=== PATIENT | female | born 1965 | race Caucasian/White ===

== ENCOUNTER 2021-05-05 12:14 | Outpatient (CLI) | payer BC, SELFPAY ==
--- NOTE | ~2021-05-05 | MM_ITS ---
EXAMINATION: MM diagnostic yesi RT w blair HISTORY: Follow-up right breast asymmetry TECHNIQUE: Additional 3-D tomosynthesis images of the right breast were performed and synthetic 2-D i mages were generated. CAD analysis was submitted and interpreted. COMPARISON: 04/16/2021 BREAST PARENCHYMAL COMPOSITION: Breast composed of scattered areas of fibroglandular density FINDINGS: . There are no suspicious masses, calcifications or architectural distortion in the right b reast to suggest malignancy. The focal asymmetry posteriorly and laterally near the chest wall corres ponds to pectoralis muscle. IMPRESSION: 1. No mammographic evidence for malignancy in the right breast. 2. Routine yearly screening mammogram and regular clinical breast examination are recommended. BI-RADS Category 1: Negative Reviewed, dictated and finalized at location A. SERVICES COORDINATOR IMPRESSION: 1. No mammographic evidence for malignancy in the right breast. 2. Routine yearly screening mammogram and regular clinical breast examination a re recommended. BI-RADS Category 1: Negative
== END 2021-05-05 12:15 | disposition home or self-care (01) ==
LOC: ANHIMG 12:18
PROVIDERS: Visit Provider Nurse Practitioner Women's Health
DX: R92.8 Other abnormal and inconclusive findings on diagnostic imaging of breast (principal)
CPT/HCPCS: 77061; 77065; G0279

== ENCOUNTER 2022-05-25 10:40 | Outpatient (CLI) | payer BC, SELFPAY ==
--- NOTE | 2022-05-28 15:34 | WPDHOLTEREM ---
Holter/Event Monitor Holter/Event Monitor Date of procedure: 05/25/22 Holter/Event Procedure: 48 Hr Holter Monitor Indications: Palpitations Conclusion: 1. 48 hour holter monitor on 05/25/22. 2. Underlying rhythm is sinus rhythm. HR range 46-136 bpm; average HR 76 bpm. 3. There are 7,017 premature supraventricular complexes and 8 supraventricular couplets, 237 supraventricular trigeminy. No supraventricular tachycardia. 4. There are 10,275 premature ventricular complexes, 715 premature ventricular couplets, 291 ventricular bigeminy and 810 ventricular trigeminy. No ventricular tachycardia. 5. No sinoatrial or atrioventricular blocks. No significant pauses greater than 2 seconds. 6. No symptoms available for correlation.
== END 2022-05-25 10:41 | disposition home or self-care (01) ==
PROVIDERS: PCP Physician Assistant Medical; Visit Provider Physician Assistant Medical
DX: R00.2 Palpitations (principal)
CPT/HCPCS: 93225; 93226

== ENCOUNTER 2022-06-17 08:47 | Outpatient (CLI) | payer BC, SELFPAY ==
--- NOTE | ~2022-06-17 | MM_ITS ---
EXAMINATION: MM screening yesi BI w blair HISTORY: Screening mammogram TECHNIQUE: Craniocaudal and mediolateral oblique 3-D tomosynthesis images were obtained and synthetic 2-D images were generated. CAD analysis was submitted and interpreted. COMPARISON: 05/05/2021 right diagnostic mammogram 04/24/2021 Limited right breast ultrasound 04/16/2021 bilateral screening mammogram BREAST PARENCHYMAL COMPOSITION: The breasts are almost entirely fatty. FINDINGS: There is no evidence of suspicious mass, calcification, or architectural distortion to sugg est malignancy in either breast. There has been no suspicious interval change. IMPRESSION: 1. No mammographic evidence of malignancy. 2. Recommend routine screening mammography in one year. BI-RADS Category 1: Negative Reviewed, dictated and finalized at location A. ABLE SAWYER
== END 2022-06-17 08:48 | disposition home or self-care (01) ==
LOC: ANHIMG 08:50
PROVIDERS: PCP Physician Assistant Medical; Visit Provider Obstetrics & Gynecology
DX: Z12.31 Encounter for screening mammogram for malignant neoplasm of breast (principal)
CPT/HCPCS: 77063; 77067

== ENCOUNTER 2023-09-07 08:51 | Outpatient (CLI) | payer BC, SELFPAY ==
--- NOTE | ~2023-09-07 | MM_ITS ---
EXAMINATION: MM screening yesi BI w blair HISTORY: Screening TECHNIQUE: Craniocaudal and mediolateral oblique 3-D tomosynthesis images were obtained and synthetic 2-D images were generated. CAD analysis was submitted and interpreted. COMPARISON: Comparison to multiple prior studies sequentially, with oldest reviewed study dated 01/2021. BREAST PARENCHYMAL COMPOSITION: Not dense: There are scattered areas of fibroglandular density. FINDINGS: There is no evidence of suspicious mass, calcification, or architectural distortion to sugg est malignancy in either breast. There has been no suspicious interval change. IMPRESSION: 1. No mammographic evidence of malignancy. 2. Recommend routine screening mammography in one year. BI-RADS Category 1: Negative Reviewed, dictated and finalized at location B.
== END 2023-09-07 08:52 | disposition home or self-care (01) ==
LOC: ANHIMG 08:54
PROVIDERS: PCP Physician Assistant Medical; Visit Provider Physician Assistant Medical
DX: Z12.31 Encounter for screening mammogram for malignant neoplasm of breast (principal)
CPT/HCPCS: 77063; 77067

== ENCOUNTER 2024-09-07 07:22 | Outpatient (CLI) | payer BC, SELFPAY ==
--- NOTE | ~2024-09-07 | MM_ITS ---
EXAMINATION: MM screening [facility] BI w [facility] HISTORY: Screening TECHNIQUE: Craniocaudal and mediolateral oblique 3-D tomosynthesis images were obtained and synthetic 2-D images were generated. CAD analysis was submitted and interpreted. COMPARISON: Comparison to multiple prior studies sequentially, with oldest reviewed study dated 01/2021. BREAST PARENCHYMAL COMPOSITION: Not Dense: The breasts are almost entirely fatty. FINDINGS: There is no evidence of suspicious mass, calcification, or architectural distortion to sugg est malignancy in either breast. There has been no suspicious interval change. IMPRESSION: 1. No mammographic evidence of malignancy. 2. Recommend routine screening mammography in one year. BI-RADS Category 1: Negative Reviewed, dictated and finalized at location A.
--- OUTSIDE RECORDS SUMMARY | 2024-09-07 07:26 | XMS_ITS | Clinical Summary ---
Author Organization [facility] Address [address] [place] [address] Care Team Providers Care Door Assembler Name Role Phone Chucho Jhoana GALVIN Primary Care Provider [phone] Allergies Active Allergy Reactions Criticality Noted Date Comments Shena Haywood 12/15/2018 Medications pantoprazole EC 40 MG tabletIndicati ons:Gastroesop hageal Reflux Disease Take 1 tablet (40 mg total) by mouth daily. Indications: Gastroesophageal Reflux Disease 0 10/06/19 19 Active pregabalin (LYRICA) 50 MG capsuleIndicat ions:Numbness and tingling of left leg Take 1 capsule (50 mg total) by mouth 3 (three) times daily. 90 capsule 10/10/19 24 Active BONE STIMULATOR, DME,Indication s:Spondylolist hesis at L4-L5 level Apply 1 Device topically daily. Wear four (4) hours daily. Can break up into multiple sessions totaling four (4) hours. 1 Device 01/26/20 24 025 Active Misc. Devices MiscIndication s:Spondylolist hesis of lumbar region 1 Units by Does not apply route daily. LSO for continuous wear while ambulating or up in chair 1 each 01/26/20 24 Active multi vitamin/minera ls (THERA-M ENHANCED) tablet Take 1 tablet by mouth daily. Active Flaxseed, Linseed, (FLAX SEED OIL OR) Active calcium carbonate 1250 (500 Ca) MG chewable tablet Chew 1 tablet (1,250 mg total) by mouth daily. Active B complex-C Cap capsule Take 1 capsule by mouth daily. Active HYDROcodone-ac etaminophen (NORCO) 5-325 MG tabletIndicati ons:Chronic Pain Take 1-2 tablets by mouth every 4 (four) hours as needed. Indications: Chronic Pain 50 tablet 02/17/20 24 Active diazePAM (VALIUM) 5 MG tabletIndicati ons:S/P lumbar fusion Take 1 tablet (5 mg total) by mouth every 6 (six) hours as needed for Muscle Spasms. 60 tablet 02/17/20 24 Active naloxone (NARCAN) 4 MG/0.1ML nasal sprayIndicatio ns:S/P lumbar fusion 1 spray by Nasal route as needed for Opioid reversal. may repeat every 2 to 3 minutes in alternating nostrils until medical assistance becomes available 1 each 02/17/20 24 025 Active Active Problems Problem Noted Date Diagnosed Date Acute pain of right knee 07/12/2024 Rheumatoid arthritis ([facility]) S/P lumbar fusion 02/15/2024 Numbness and tingling of left leg 10/11/2023 Assessment & Plan (10/11/2023 7:23 PM CDT): Recommendation at this time, we'll get her set up for an EMG-NCV as well as an MRI of the lumbar spine. We'll see her back after that. Spondylolisthesis at L4-L5 level 10/11/2023 BMI 36.0-36.9,adult 10/11/2023 Assessment & Plan (10/11/2023 7:23 PM CDT): We discussed the adverse effects of weight on osteoarthritis. For every 1 pound loss, 4 to 6 pounds of stress is relieved from the knee, slightly more at the ankle and slightly less at the hip. We discussed low carbohydrate diet to help with weight loss. 80% of weight loss is through diet. Diverticulitis of large intestine 02/24/2021 Diverticulitis 01/07/2021 Diverticulitis of colon with perforation 021 Encounters Date Type Department Care Team Description 07/19/2024 7:29 AM CDT - 07/19/2024 11:59 PM CDT Hospital Encounter [facility] [address] [place] [id number] Olga Harris, PT Chayito Pinzon PTA Knee Pain Discharge Disposition: Home or Self Care (Routine Discharge) 07/19/2024 Travel 07/16/2024 7:27 AM CDT - 07/16/2024 11:59 PM CDT Hospital Encounter [facility] [address] [place] [id number] Olga Harris, PT Alexia Atkinson, PA Knee Pain Discharge Disposition: Home or Self Care (Routine Discharge) 07/16/2024 Travel 07/12/2024 7:25 AM VETERINARY PHARMACOLOGIST - 07/12/2024 11:59 PM VETERINARY PHARMACOLOGIST Hospital Encounter [facility] [address] [place] [id number] Olga Harris, PT Alexia Atkinson, PA Knee Pain Discharge Disposition: Home or Self Care (Routine Discharge) 07/12/2024 Travel 07/03/2024 11:45 AM VETERINARY PHARMACOLOGIST - 07/03/2024 11:59 PM VETERINARY PHARMACOLOGIST Hospital Encounter [facility] [address] [place] [address] Alexia Atkinson, PA Discharge Disposition: Home or Self Care (Routine Discharge) 07/03/2024 11:20 AM VETERINARY PHARMACOLOGIST Office Visit [facility] [address] [phone] Alexia Atkinson, PA Knee Injury (Was walking last week and knee gave out-been having a lot of pain since than) 07/03/2024 Orders Only [facility] [address] [phone] Alexia Atkinson, PA 07/03/2024 Travel from Last 3 Months Immunizations Immunization Administration Dates Next Due Fluzone 6 Months+ Quad (0.5 mL Prefilled Syringe ) 02/25/2021 adjust (Phagenesis) COVID-19 AD26 VACCINE 0.5 ML IM SUSP 07/11/2020 Family History Medical History Relation Comments Congenital heart defect Father Breast Cancer Maternal Aunt Pancreatic cancer Maternal Uncle Arthritis Mother Diabetes Mother Relation Status Comments Father Maternal Aunt Maternal Uncle Mother Alive Social History Tobacco Use Types Packs/Day Years Used Date Smoking Tobacco: Former Cigarettes Smokeless Tobacco: Never Tobacco Cessation:Counseling Given: No Comments:While drinking during college, never more than a few cigarettes at a time. Alcohol Use Standard Drinks/Week Comments Yes 0 (1 standard drink = 0.6 oz pur e alcohol) Varies on weekends B1300 Health Literacy Answer Date Recor ded How often do you need to hav e someone help you when you read instructions, pamphlets, or other written material from your doctor or pharmacy? Never 02/15/2024 [facility] Utilities Answer Date Recorded In the past 12 months has e [employer], gas, oil, or water [employer] threatened to shut off services in your home? No 02/15/2024 Humiliation, Afraid, Rape, and Kick questionnair e Answer Date Recorded Within the last year, have y ou been afraid of your partner or ex-partner? No 02/15/2024 Within the last year, have y ou been humiliated or emotionally abused in other ways by your partner or ex-partner? No Within the last year, have y ou been kicked, hit, slapped, or otherwise physically hurt by your partner or ex-partner? No 02/15/2024 Within the last year, have y ou been raped or forced to have any kind of sexual activity by your partner or ex-partner? No 02/15/2024 Overall Financial Resource Strain (CARDIA) Answe r Date Recorded How hard is it for you to pa y for the very basics like food, housing, medical care, and heating? Not hard at all 02/15/2024 PHQ-2 Answer Date Recorded Patient Health Questionnaire-2 Score 0 07/03/2024 [facility] Occup[facility] - Occupational Stress Questionnaire Answer Date Recorded Do you feel stress - tense, restless, nervous, or anxious, or unable to sleep at night because your mind is troubled all the time - these days? Not at all 02/15/2024 Exercise Vital Sign Answer Date Recorde d On average, how many days pe r week do you engage in moderate to strenuous exercise (like a brisk walk)? 0 days 02/15/2024 On average, how many minutes do you engage in exercise at this level? 0 min 02/15/2024 Hunger Vital Sign Answer Date Recorded Within the past 12 months, y ou worried that your food would run out before you got the money to buy more. Never true 02/15/20 24 Within the past 12 months, t he food you bought just didn't last and you didn't have money to get more. Never true 02/15/2024 PRAPARE - Transportation Answer Date Re corded In the past 12 months, has l ack of transportation kept you from medical appointments or from getting medications? No 01/2024 In the past 12 months, has l ack of transportation kept you from meetings, work, or from getting things needed for daily living? No 02/15/2024 Housing Stability Vital Sign Answer Mike e Recorded In the last 12 months, was t here a time when you were not able to pay the mortgage or rent on time? No 02/15/2024 In the past 12 months, how m any times have you moved where you were living? 0 02/15/2024 At any time in the past 12 m [facility], were you homeless or living in a snf (including now)? No 02/15/2024 Education Answer Date Recorded What is the highest level of school you have completed or the highest degree you have received? Some college, no degree 12/15/2018 Comments No Sex and Gender Information Value Date Recorded Sex Assigned at Female 12/15/2018 1:52 PM CDT Legal Sex Female 4:52 PM CDT Gender Identity Female 12/15/2018 1:52 PM CDT Sexual Orientation Not on file Last Filed Vital Signs Vital Sign Reading Time Taken Comments Blood Pressure 138/88 07/03/2024 11:23 AM VETERINARY PHARMACOLOGIST Pulse 80 07/03/2024 11:23 AM VETERINARY PHARMACOLOGIST Temperature 36.6 C (97.9 F) 07/03/2024 11:23 AM VETERINARY PHARMACOLOGIST Respiratory Rate 20 07/03/2024 11:23 AM VETERINARY PHARMACOLOGIST Oxygen Saturation 99% 07/03/2024 11:23 AM VETERINARY PHARMACOLOGIST Inhaled Oxygen Concentration - - Weight 91.2 kg (201 lb) 07/03/2024 11:23 AM VETERINARY PHARMACOLOGIST Height 160 cm (5' 3 ) 07/03/2024 11:23 AM VETERINARY PHARMACOLOGIST Body Mass Index 35.61 07/03/2024 11:23 AM VETERINARY PHARMACOLOGIST Plan of Treatment Upcoming Encounters Date Type Department Care Team (Late st Contact Info) Description 10/11/2024 11:20 AM CDT Office Visit [facility] Multispecialty Care - [facility] [address], [address] [place] [address] López Boateng MD [address] [place] [address] Health Maintenance Due Date Last Done Comments Cervical Cancer Screening Pa p Smear (Age 30 to 64) Every 3 Years 1967 Annual Physical 1970 Hepatitis C 1985 DTaP, Tdap and Td Vaccines ( 1 - Tdap) 1986 Hepatitis B Vaccines (1 of 3 - 19+ 3-dose series) 1986 Pneumococcal Vaccine: 50+ Years (1 of 2 - PCV) 1986 Cervical Cancer Screening Pa p with HPV Testing (Age 30 to 64) Every 5 Years 1997 Cervical Cancer Screening wi th HPV 1997 Mammogram Screening 2007 Zoster Vaccines (1 of 2) 2017 COVID-19 Vaccine (2 - 2023-2 5 season) 2024 07/11/2020 Colorectal Cancer Screening Colonoscopy (10 Years) 02/24/2031 02/24/2021, 02/23/2019 PHQ-2 (Physician [place]) Completed 07/03/2024 Meningococcal B Vaccine Aged Out No l onger eligible based on patient's age to complete this topic Meningococcal Vaccine Aged Out No lissett earnestine eligible based on patient's age to complete this topic RSV Immunizations Under 20 Months Aged Out No longer eligible b ased on patient's age to complete this topic Goals Goal Patient Goal Type Associated Problems Recent Progress Patient-Stated? Author Family - family caregiver with be involved in care transitions and discharge planning Lifestyle No Koerkenmeie r, Jordan L, RN Medical Devices Implanted Type Area [place] Planning Manager Device Identifier Shelf Expiration Date Model / Serial / Lot Putty Giselle Matrix Dbm/Dbf Bone 6c - [id number] Implanted:Qty : 1 on 02/15/2024 by López Boateng MD at [facility] Bone N/A: Spine Lumbar [employer] [id number] 10/25/2025 [id number] / [id number] / Graft Infuse Bone Medium - [id number] Implanted:Qty : 1 on 02/15/2024 by López Boateng MD at [facility] Graft N/A: Spine Lumbar [employer] [id number] 07/07/2025 [id number] / / [id number] 37mm Pyramid Plate Implanted:Qty : 1 on 02/15/2024 by López Boateng MD at [facility] Plate N/A: Spine Lumbar [employer] [id number] / / 4.75*50 Mm Brayan Implanted:Qty : 1 on 02/15/2024 by López Boateng MD at [facility] Brayan N/A: Spine Lumbar [employer] [id number] / / 6.5*25mm Screw Implanted:Qty : 4 on 02/15/2024 by López Boateng MD at [facility] Screw N/A: Spine Lumbar [employer] [id number] / / 7.5*35 Mm Screw Implanted:Qty : 2 on 02/15/2024 by López Boateng MD at [facility] Screw N/A: Spine Lumbar [employer] [id number] / / Anteralign Screw Implanted:Qty : 1 on 02/15/2024 by López Boateng MD at [facility] Screw N/A: Spine Lumbar [employer] [id number] 03/18/2031 [id number] / / [id number] Anteralign Screw Implanted:Qty : 1 on 02/15/2024 by López Boateng MD at [facility] Screw N/A: Spine Lumbar [employer] [id number] 05/25/2031 [id number] / / [id number] Graft Soft Tissue 4x4cm N[place]ield Allograft - [id number] Implanted:Qty : 1 on 02/15/2024 by López Boateng MD at [facility] Tissue N/A: Spine Lumbar [employer] 07/16/2028 [id number] / / [id number] Medtronic Anteralign Spinal System With Titan Nanolock Ls Spacer Implanted:Qty : 1 on 02/15/2024 by López Boateng MD at [facility] N/A: Spine Lumbar 11/02/2029 [id number] / / [id number] Anteralign Ls Spacer Implanted:Qty : 1 on 02/15/2024 by López Boateng MD at [facility] N/A: Spine Lumbar [id number] 03/04/2030 [id number] / / [id number] 5.5*40 Mm Screw Implanted:Qty : 1 on 02/15/2024 by López Boateng MD at [facility] N/A: Spine Lumbar [employer] [id number] / / Voyager Set Screw Implanted:Qty : 4 on 02/15/2024 by López Boateng MD at [facility] N/A: Spine Lumbar [employer] [id number] / / Procedures Procedure Name Priority Date/Time Associated Diagnosis Comments XR KNEE RT 3V STAT 07/03/2024 12:02 PM VETERINARY PHARMACOLOGIST Acute pain of right knee from Last 3 Months Results * XR KNEE RT 3V (07/03/2024 12:02 PM VETERINARY PHARMACOLOGIST) Anatomical Region Laterality Modality Knee Radiographic Maki ging 07/03/2024 12:0 4 PM VETERINARY PHARMACOLOGIST Impressions 07/03/2024 12:04 PM VETERINARY PHARMACOLOGIST IMPRESSION: 1. Moderate medial predominant tricompartmental osteoarthritis. 2. Joint effusion without evidence of fracture. Ordered By: ALEXIA ATKINSON Interpreted By: Callum Galarza, 07/03/2024 12:04 PM Narrative 07/03/2024 12:04 PM VETERINARY PHARMACOLOGIST [facility] [address] [place] [address] EXAMINATION: Right knee EXAM DATE: 07/03/2024 11:49 AM REASON FOR EXAM: right knee pain COMPARISON: None TECHNIQUE: 3 views FINDINGS: Mild soft tissue swelling. Small joint effusion. Moderate medial predominant tricompartmental osteoarthritis. No evidence of fracture. Procedure Note Callum Galarza MD - 07/03/2024 [facility] [address] [place] [address] EXAMINATION: Right knee EXAM DATE: 07/03/2024 11:49 AM REASON FOR EXAM: right knee pain COMPARISON: None TECHNIQUE: 3 views FINDINGS: Mild soft tissue swelling. Small joint effusion. Moderate medial predominant tricompartmental osteoarthritis. No evidenceof fracture. IMPRESSION: 1. Moderate medial predominant tricompartmental osteoarthritis. 2. Joint effusion without evidence of fracture. Ordered By: ALEXIA ATKINSON Interpreted By: Callum Galarza, 07/03/2024 12:04 PM [facility] Final Result from Last 3 Months Insurance Advance Directives Documents on File Type Date Recorded Patient Satellite Communications Engineer Expl anation Power of Blacksmith Helper 02/24/2021 5:30 AM POA 02-24-21 * Full Code (Latest Code Status on File) Date Activated Date Inactivated Comments 02/15/2024 1:52 PM 02/17/2024 4:52 PM * Full Code Date Activated Date Inactivated Comments 02/24/2021 12:22 PM 02/28/2021 4:14 PM * Full Code Date Activated Date Inactivated Comments 01/07/2021 10:30 PM 01/09/2021 4:25 PM Care Teams Door Assembler Relationship Specialty Start Date End Date Jhoana Rankin PA [address] [place] [id number] PCP - General PHYSICIAN NIGHT WAREHOUSE SELECTOR 01/27/24
--- OUTSIDE RECORDS SUMMARY | 2024-09-07 07:26 | XMS_ITS | Clinical Summary ---
Author Organization [facility] Address [address] [place] [address] Care Team Providers Care Office Mail Clerk Name Role Phone Unavailable Primary Care Provider Unavailabl e Source Comments [facility],non-owned Affiliates and Associated Physician Practices is amultiple site organization consisting of ambulatory clinics and hospital sitesin [place], [place], [place] and [place]. This disclosure is being madepursuant to the Care Everywhere program and may not contain all information available regarding this patient. Last updated 18.[facility] Social History Tobacco Use Types Packs/Day Years Used Date Smoking Tobacco: Never Assessed Comments Unknown Sex and Gender Information Value Date Recorded Sex Assigned at Not on file Legal Sex Female 6:29 PM BUS GIRL Gender Identity Not on file Sexual Orientation Not on file Plan of Treatment Health Maintenance Due Date Last Done Comments COLOGUARD (AGES 45-75) - COL ON CA SCREENING 1967 COLON MONITORING 1967 COLONOSCOPY - COLON CA SCREENING 1967 CT COLONOGRAPHY - COLON CA SCREENING 1967 Colorectal Cancer Screening 1967 FIT - COLON CA SCREENING 1967 FLEX SIG - COLON CA SCREENING 1967 LIPID TESTING 1967 MAMMOGRAM 1967 PAP SMEAR 1967 HIV SCREENING 1982 HEPATITIS C SCREENING 04/30/1985 DTAP/TDAP/TD VACCINES (1 - Tdap) 1986 HEPATITIS B VACCINE (1 of 3 - 19+ 3-dose series) 1986 PNEUMOCOCCAL VACCINE 50+ (1 of 1 - PCV) 2017 ZOSTER VACCINE (1 of 2) 2017 COVID-19 VACCINE (1 - 2023-2 5 season) 2024 DEPRESSION SCREENING 05/09/2024 INFLUENZA VACCINE (Season Ended) 2025 02/26/20 21 HIB VACCINE Aged Out No longer eligi ble based on patient's age to complete this topic HPV VACCINE Aged Out No longer eligi ble based on patient's age to complete this topic MENINGOCOCCAL (Group B) VACC INE SHARED DECISION-MAKING Aged Out No longer eligibl e based on patient's age to complete this topic MENINGOCOCCAL GROUPS A/C/Y/W VACCINE Aged Out No longer eligible b ased on patient's age to complete this topic Insurance [facility]
--- OUTSIDE RECORDS SUMMARY | 2024-09-07 07:26 | XMS_ITS | Encounter Summary ---
Author Organization [facility] Address [address] [place] [address] Care Team Providers Care Center Sales And Service Associate Name Role Phone Mihir Huston MD Primary Care Provider [phone] Jasmin Velásquez PA-C Primary Care Provider [phone] Jhoana Rankin Primary Care Provider [phone] Encounter Details Date Type Department Care Team (Late st Contact Info) Description 03/02/2021 Hospital Follow-up Call [facility] [address] [place] [address] Maegan Mai, RN Social History Tobacco Use Types Packs/Day Years Used Date Smoking Tobacco: Former Cigarettes Smokeless Tobacco: Never Comments:quit smoking 24 yea rs ago Alcohol Use Standard Drinks/Week Comments Yes 0 (1 standard drink = 0.6 oz pur e alcohol) Socially Education Answer Date Recorded What is the highest level of school you have completed or the highest degree you have received? Some college, no degree 12/15/2018 Comments No Sex and Gender Information Value Date Recorded Sex Assigned at Female 12/15/2018 1:52 PM CDT Legal Sex Female 4:52 PM CDT Gender Identity Female 12/15/2018 1:52 PM CDT Sexual Orientation Not on file COVID-19 Exposure Response Date Recorded In the last month, have you been in contact with someone who was confirmed or suspected to have Coronavirus / COVID-19? No / Unsure 02/24/2021 5:28 AM CDT documented as of this encounter Functional Status * RETIRED Are you deaf or do you have serious difficulty hearing Answer Date of Assessment Author Status No 02/24/2021 6:30 AM CDT Activ e * RETIRED Are you blind or do you have serious difficulty seeing, even when wearing glasses? Answer Date of Assessment Author Status No 02/24/2021 6:30 AM CDT Activ e * Do you have serious difficulty walking or climbing stairs? Answer Date of Assessment Author Status No 02/24/2021 6:30 AM CDT Alek Flynn RN Active * Do you have difficulty dressing or bathing? Answer Date of Assessment Author Status No 02/24/2021 6:30 AM CDT Alek Flynn RN Active * Because of a physical, mental, or emotional condition, do you have difficulty doing errands alone such as visiting a doctor's office or shopping? Answer Date of Assessment Author Status No 02/24/2021 6:30 AM CDT Alek Flynn RN Active documented as of this encounter Mental Status * Because of a physical, mental, or emotional condition, do you have serious difficulty concentrating, remembering, or making decisions? Answer Entry Date Author Status No 02/24/2021 6:30 AM CDT Alek Flynn RN Active documented in this encounter Plan of Treatment Upcoming Encounters Date Type Department Care Team (Late st Contact Info) Description 10/11/2024 11:20 AM CDT Office Visit [facility] - [address], [address] [place] [address] López Boateng MD [address] [place] [address] documented as of this encounter Visit Diagnoses Not on filedocumented in this encounter Care Teams Center Sales And Service Associate Relationship Specialty Start Date End Date Mihir Huston MD PCP - General INTERNAL MEDICINE 08/18/18 12/11/22 Jasmin Velásquez PA-C [facility] [place] [address] PCP - General PHYSICIAN MAP COMPILER 12/12/22 01/26/24 Jhoana Rankin PA [facility] [place] [address] PCP - General PHYSICIAN MAP COMPILER 01/27/24 documented as of this encounter
--- OUTSIDE RECORDS SUMMARY | 2024-09-07 07:26 | XMS_ITS | Encounter Summary ---
Author Organization [facility] Address [address] [place] [address] Care Team Providers Care [employer] Name Role Phone Mihir Huston MD Primary Care Provider [phone] Jasmin Velásquez PA-C Primary Care Provider [phone] Jhoana Rankin Primary Care Provider [phone] Encounter Details Date Type Department Care Team (Late st Contact Info) Description 01/13/2021 Hospital Follow-up Call [facility] [address] [place] [address] Maegan Mai, RN Social History Tobacco Use Types Packs/Day Years Used Date Smoking Tobacco: Former Smokeless Tobacco: Never Alcohol Use Standard Drinks/Week Comments Yes 0 [...] have Coronavirus / COVID-19? No / Unsure 01/16/2021 2:33 PM CDT documented as of this encounter Functional Status * RETIRED Are you deaf or do you have serious difficulty hearing Answer Date of Assessment Author Status No 01/07/2021 10:30 PM CDT Acti ve * RETIRED Are you blind or do you have serious difficulty seeing, even when wearing glasses? Answer Date of Assessment Author Status No 01/07/2021 10:30 PM CDT Acti ve * Do you have serious difficulty walking or climbing stairs? Answer Date of Assessment Author Status No 01/07/2021 10:30 PM CDT Mayito Shabazz RN Active * Do you have difficulty dressing or bathing? Answer Date of Assessment Author Status No 01/07/2021 10:30 PM BALTAT Mayito Shabazz RN Active * Because of a physical, mental, or emotional condition, do you have difficulty doing errands alone such as visiting a doctor's office or shopping? Answer Date of Assessment Author Status No 01/07/2021 10:30 PM BALTAT Mayito Shabazz RN Active * Calculated C-SSRS Risk Score (Lifetime/Recent) Answer Date of Assessment Author Status No Risk Indicated 01/16/2021 2:41 PM CDT Radha Collado RN Active * Caroline Suicide Severity Rating Scale (Screener/Recent Self-Report) Question Answer Date of Assessment Author Status 1. Wish to be (Past 1 Month) No 01/16/2021 2:41 PM CDT Radha Collado RN Activ e 2. Non-Specific Active Suicidal Thoughts (Past 1 Month) No 01/16/2021 2:41 PM CDT Radha Collado RN Activ e 6. Suicidal Behavior (Lifetime) No 01/16/2021 2:41 PM CDT Radha Collado RN Activ e documented as of this encounter Mental Status * Because of a physical, mental, or emotional condition, do you have serious difficulty concentrating, remembering, or making decisions? Answer Entry Date Author Status No 01/07/2021 10:30 PM BALTAT Mayito Shabazz RN Active documented in this encounter Plan of Treatment Upcoming Encounters Date Type Department Care Team (Late st Contact Info) Description 10/11/2024 11:20 AM CDT Office Visit [facility] [address] [place] [address] López Boateng MD [address] [place] [address] documented as of this encounter Visit Diagnoses Not on filedocumented in this encounter Care Teams [employer] Relationship Specialty Start Date End Date Mihir Huston MD PCP - General INTERNAL MEDICINE 08/18/18 12/11/22 Jasmin Velásquez PA-C [address] [place], [place] [address] [place] [address] PCP - General PHYSICIAN QUOTER 12/12/22 01/26/24 Jhoana Rankin PA [address] [place] [address] PCP - General PHYSICIAN QUOTER 01/27/24 documented as of this encounter
== END 2024-09-07 07:23 | disposition home or self-care (01) ==
LOC: ANHIMG 07:24
PROVIDERS: PCP Physician Assistant Medical; Visit Provider Physician Assistant Medical
DX: Z12.31 Encounter for screening mammogram for malignant neoplasm of breast (principal)
CPT/HCPCS: 77063; 77067